=== PATIENT | female | born 1930 | race Caucasian/White ===

== ENCOUNTER 2016-12-14 09:29 | Emergency (ER) | payer OTHER ==
[~2016-12-14] VITALS: Ht 154.9 cm; Wt 60.5 kg
[~2016-12-14 09:29] MED LIST: AMLODIPINE BESY10 MG PO; ASPIR-LOW81 MG PO; ATENOLOL100 MG PO; CLONIDINE HCL0.2 MG PO; HYDROCHLOROTHIA25 MG PO; LEVAQUIN750 MG PO; LORAZEPAM0.5 MG PO; MEDROL DOSEPAK4 MG PO; METFORMIN HCL500 MG PO; MICROZIDE12.5 M1 PO; ROBITUSSIN AC,T10 ML PO; TRAMADOL HCL50 MG PO; ZITHROMAX TRI-500 MG PO
[2016-12-14 10:30] LABS: HEMATOCRIT 38.3 % (36.0-46.0); MCH 29.9 PG (29.0-34.0); MCHC 32.9 G/DL (30.0-36.0); MEAN PLAT.VOLUME 10.5 uM^3 (9.5-12.4); PLATELET COUNT 216 K/uL (156-360); RBC DIS.WIDTH-CV 12.3 % (11.8-14.6); RBC DIS.WIDTH-SD 41.2 % (39-53); RED BLOOD COUNT 4.21 M/uL (3.80-5.20); WHITE BLOOD COUNT 10.1 K/uL (4.1-10.2)
[2016-12-14 10:39] LABS: CHLORIDE 107 mEq/L (99-109); POTASSIUM 4.1 mEq/L (3.7-5.4); SODIUM 143 mEq/L (136-147)
[2016-12-14 10:40] LABS: GLUCOSE 105 mg/dL (70-99)
[2016-12-14 10:42] LABS: ANION GAP 10 MEQ/L (2-14)
[2016-12-14 10:44] LABS: GFR ESTIMATE (CALCULATED) > 59 mL/min/
[2016-12-14 10:45] LABS: UREA NITROGEN (BUN) 21 mg/dL (9-23)
[2016-12-14 10:52] LABS: TROP-I INTERPRETATION NEGATIVE; TROPONIN-I < 0.01 ng/mL (0.0-0.30)
[2016-12-14 11:56] VITALS: BP 105/51
== END 2016-12-14 11:57 | disposition home or self-care (01) ==
LOC: EME 09:29
PROVIDERS: Emergency Medicine
DX: R05 Cough (principal); J30.2 Other seasonal allergic rhinitis; E11.9 Type 2 diabetes mellitus without complications
CPT/HCPCS: 71020; 80048; 84484; 85027; 93005; 99281; 99284